=== PATIENT | male | born 1970 | race Caucasian/White ===

== ENCOUNTER 2017-12-13 00:06 | Emergency (ER) | payer BC, OTHER ==
[2017-12-13 00:11] VITALS: BP 137/86
[2017-12-13] MEDS ORDERED: TDAP ADULT 0.5 ML INJ (BOOSTRIX) IM ONE (00:18)
[2017-12-13] MEDS ORDERED: AMOXICILLIN/CLAVULANATE POT 875/125 MG TAB PO ONE (00:21)
--- NOTE | 2017-12-13 00:24 | EDPHY ---
H & P Time Seen by Provider: 12/13/17 00:19 HPI/ROS: CHIEF COMPLAINT: Dog bite HISTORY OF PRESENT ILLNESS: 47-year-old immunocompetent male with out-of-date tetanus arrives via private vehicle complaining of dog bite to his face and left hand after he was breaking up a fight between his dog another dog. Occurred shortly prior to arrival. He is complaining of dog bite to the left thenar eminence and to the left cheek and chin. The facial bite/puncture wounds are not through and through. No intraoral bleeding. No neck injury. No paresthesia to the hand. PHYSICAL EXAM (Prior to examination, patient consented to physical exam, hands were washed and my usual and customary physical exam procedures followed) 1) GENERAL: Well-developed, well-nourished, alert and oriented. Appears to be in no acute distress. 2) HEAD: Normocephalic 3) HEENT: sclera anicteric . Left cheek 1 cm superficial puncture wound not through and through. No signs of infection. Left chin superficial puncture wound not through and through measuring 1 cm. 4) LUNGS: Breathing comfortably. 5) MUSCULOSKELETAL: Left hand in the webspace between the 1st and 2nd digit 1 cm laceration not through and through . There is a 1 mm puncture wound on the dorsal left thumb proximal phalanx. Abduction abduction extension flexion opposition intact. 6) NEUROLOGIC: Full sensation two-point discrimination intact distally Smoking Status: Never smoked Constitutional: Initial Vital Signs Temperature (C) 36.8 C 12/13/17 00:08 Heart Rate 104 H 12/13/17 00:08 Respiratory Rate 20 12/13/17 00:08 Blood Pressure 137/86 H 12/13/17 00:08 O2 Sat (%) 96 12/13/17 00:08 O2 Delivery Mode Room Air Allergies/Adverse Reactions: No Known Allergies Allergy (Unverified 12/13/17 00:11) Home Medications: Medication Instructions Recorded Amoxicillin/Clavulanate Pot 875 mg PO BID #14 tab 12/13/17 [Augmentin 875 mg tab] Atorvastatin Calcium 20 mg PO 12/13/17 Methylphenidate HCl [Concerta] 18 mg PO 12/13/17 MDM/Departure - MDM Procedures: Procedure: Wound anesthetic Indication: Wound irrigation Indications risks benefits of procedure and medication discussed with patient he consents. 1% lidocaine with epinephrine administered by myself in usual and customary fashion. Patient tolerated procedure well. ED Course/Re-evaluation: Patient's wounds to his face and hand have been copiously irrigated by ER staff. These will be allowed to heal via secondary intention. He has been informed that scarring will occur. Specifically regarding the 2, 1 cm discrete lacerations to his face which are not through and through, I think that the risks of primary wound closure outweigh the benefits. Explained this at length the patient he verbalized understanding and acceptance. He is started on prophylactic Augmentin. Usual and customary wound precautions and instructions provided. At this time he has no signs of infection. I saw this patient independently based on established practice protocols. Care of patient under supervision of secondary supervising physician Dr Martin . - Depart Disposition: Home, Routine, Self-Care Clinical Impression: Dog bite of left hand Qualifiers: Encounter type: initial encounter Qualified Code(s): S61.452A - Open bite of left hand, initial encounter; W54.0XXA - Bitten by dog, initial encounter; W54.0XXA - Bitten by dog, initial encounter Dog bite of face Qualifiers: Encounter type: initial encounter Qualified Code(s): S01.85XA - Open bite of other part of head, initial encounter; W54.0XXA - Bitten by dog, initial encounter; W54.0XXA - Bitten by dog, initial encounter Condition: Good Instructions: Animal Bite (ED) Additional Instructions: Return to the ER if you develop redness, swelling, discharge, warmth to the wound, red streaks going up your arm, foul-smelling discharge from your wounds, or any other symptoms that concern you. Prescriptions: Amoxicillin/Clavulanate Pot [Augmentin 875 mg tab] 875 mg PO BID #14 tab Referrals: JHON SHEEHAN [Primary Care Provider] - 12/15/17
== END 2017-12-13 01:00 | disposition home or self-care (01) ==
DX: S01.85XA Open bite of other part of head, initial encounter (principal); S61.452A Open bite of left hand, initial encounter; Z23 Encounter for immunization; W54.0XXA Bitten by dog, initial encounter